=== PATIENT | male | born 1980 | race Caucasian/White ===

== ENCOUNTER 2016-09-14 18:39 | Inpatient (IN) | payer OTHER ==
[~2016-09-14] VITALS: Ht 185.4 cm; Wt 113.6 kg
[2016-09-15 00:12] LABS: HEMOGLOBIN 12.1 gm/dl (14.0-17.5); RED BLOOD COUNT 4.14 M/UL (4.20-5.50); WHITE BLOOD COUNT 17.5 K/UL (4.5-11.0)
[2016-09-15 00:32] LABS: BUN/CREATININE RATIO 21 (0-10)
[2016-09-15 05:56] LABS: HEMOGLOBIN 10.7 gm/dl (14.0-17.5); RED BLOOD COUNT 3.73 M/UL (4.20-5.50); WHITE BLOOD COUNT 14.2 K/UL (4.5-11.0)
[2016-09-15 06:13] LABS: BUN/CREATININE RATIO 23 (0-10)
[2016-09-16 05:26] LABS: HEMOGLOBIN 11.3 gm/dl (14.0-17.5); RED BLOOD COUNT 3.93 M/UL (4.20-5.50)
[2016-09-16 05:41] LABS: BUN/CREATININE RATIO 16 (0-10)
[2016-09-17 06:00] LABS: BUN/CREATININE RATIO 13 (0-10)
[2016-09-18 06:10] LABS: HEMOGLOBIN 12.4 gm/dl (14.0-17.5); RED BLOOD COUNT 4.24 M/UL (4.20-5.50); WHITE BLOOD COUNT 10.4 K/UL (4.5-11.0)
[2016-09-18 06:25] LABS: BUN/CREATININE RATIO 13 (0-10)
[2016-09-20] MEDS ORDERED: ULTRAM50 MG PO (12:45)
[2016-09-20] MEDS ORDERED: CLINDAMYCIN HC300 MG PO (12:46)
== END 2016-09-20 14:10 | disposition home or self-care (01) | DRG 580 ==
LOC: M/S 18:39
PROVIDERS: Hospitalist; Internal Medicine; Orthopaedic Surgery; ADMIT Internal Medicine Infectious Disease
PROC: 0KB80ZZ Excision of Left Upper Arm Muscle, Open Approach (ICD-10-PCS; principal; 2016-09-16 11:33)
PROC: 0KB80ZZ Excision of Left Upper Arm Muscle, Open Approach (ICD-10-PCS; 2016-09-19)
DX: L02.414 Cutaneous abscess of left upper limb (principal); I96 Gangrene, not elsewhere classified; Z72.89 Other problems related to lifestyle; R74.0 Nonspecific elevation of levels of transaminase and lactic acid dehydrogenase [LDH]; L03.114 Cellulitis of left upper limb; F17.210 Nicotine dependence, cigarettes, uncomplicated; F19.10 Other psychoactive substance abuse, uncomplicated
CPT/HCPCS: ECHO; 36415; 73220; 80048; 80053; 80074; 80202; 82550; 82553; 83036; 83735; 84439; 84443; 84484; 85025; 85027; 87040; 87070; 87205; 87390; 90714; 93306; A9577; J0360; J1100; J1650; J2250; J2270; J2405; J2543; J3010; J3370; J7030; J7050; J7070; J7120